=== PATIENT | male | born 1950 | race Caucasian/White ===

== ENCOUNTER → 2018-04-28 | Day surgery (SDC) | payer MEDICARE ==
[~2018-04-28] MED LIST: FENTANYL CITRATE/PF 100MCG/2 ML INJ ONE; LOSARTAN POTASS25 MG PO; METFORMIN HCL500 MG PO; MIDAZOLAM HCL 2 MG/2 ML VIAL ONE; OR PHACO EYE KIT ONE; PREOP PHACO EYE KIT ONE
== END | disposition home or self-care (01) ==
LOC: OR 11:01
PROVIDERS: ATTEND Ophthalmology
DX: H25.11 Age-related nuclear cataract, right eye (principal); H43.811 Vitreous degeneration, right eye; I10 Essential (primary) hypertension; M35.00 Sjogren syndrome, unspecified; R35.0 Frequency of micturition; R49.8 Other voice and resonance disorders; H91.93 Unspecified hearing loss, bilateral; E11.65 Type 2 diabetes mellitus with hyperglycemia; B35.3 Tinea pedis; B36.1 Tinea nigra; E78.5 Hyperlipidemia, unspecified; N52.9 Male erectile dysfunction, unspecified; N42.9 Disorder of prostate, unspecified; T14.8XXA Other injury of unspecified body region, initial encounter; X58.XXXA Exposure to other specified factors, initial encounter; Z79.84 Long term (current) use of oral hypoglycemic drugs; Z80.8 Family history of malignant neoplasm of other organs or systems
CPT/HCPCS: 36415; 66984; 82948; J2250

== ENCOUNTER → 2018-05-05 | Day surgery (SDC) | payer MEDICARE | END | disposition home or self-care (01) | LOC: OR 09:57 | PROVIDERS: ATTEND Ophthalmology | DX: H25.12 Age-related nuclear cataract, left eye (principal); H43.811 Vitreous degeneration, right eye; I10 Essential (primary) hypertension; E11.9 Type 2 diabetes mellitus without complications; R35.0 Frequency of micturition; R49.8 Other voice and resonance disorders; H91.93 Unspecified hearing loss, bilateral; M35.00 Sjogren syndrome, unspecified; E11.65 Type 2 diabetes mellitus with hyperglycemia; B35.3 Tinea pedis; B35.1 Tinea unguium; N52.9 Male erectile dysfunction, unspecified; N42.9 Disorder of prostate, unspecified; E78.5 Hyperlipidemia, unspecified; Z79.84 Long term (current) use of oral hypoglycemic drugs; Z80.8 Family history of malignant neoplasm of other organs or systems | CPT/HCPCS: 66984; J2250; V2632 ==